=== PATIENT | female | born 1985 ===

== ENCOUNTER 2018-04-03 23:33 | Inpatient (IN) | payer MEDICAID ==
--- NOTE | 2018-04-04 02:22 | ED PDOC ---
HPI: Dental Pain/Injury Time Seen by Provider: 04/04/18 00:32 Chief Complaint (Nursing): Dental Pain Chief Complaint (Provider): Dental Pain History Per: Patient History/Exam Limitations: no limitations Onset/Duration Of Symptoms: Days (x2) Current Symptoms Are (Timing): Still Present Quality: "Pain" Additional History Per: Patient Additional Complaint(s): 32 y/o female with a HX of dental caries with abscess, presents to the ED with right facial swelling for the past 2 days. She describes pain and swelling to the right side of her face travelling upwards towards her eyes. Patient states one year ago the same symptoms occurred and was given antibiotics for treatment. She has not visited a dentist in some time. Otherwise, patient denies fever and any other symptoms. PMD: Ori Laird Past Medical History Reviewed: Historical Data, Nursing Documentation, Vital Signs Vital Signs: Last Vital Signs Temp 97.8 F 04/04/18 00:26 Pulse 105 H 04/04/18 00:26 Resp 16 04/04/18 00:26 BP 127/78 04/04/18 00:26 Pulse Ox 95 04/04/18 00:26 ROBINSON Report Viewed: Yes - Medical History PMH: No Chronic Diseases - Surgical History Surgical History: No Surg Hx - Family History Family History: States: Unknown Family Hx - Social History Current smoker - smoking cessation education provided: No Ex-Smoker (has not smoked in the last 12 months): No Alcohol: None Drugs: Denies - Home Medications Home Medications: Ambulatory Orders Medication Instructions Recorded Alprazolam [Xanax] 2 mg PO TID PRN 04/04/18 Gabapentin [Neurontin] 400 mg PO TID 04/04/18 RX: Amitriptyline HCl 100 mg PO DAILY 04/04/18 RX: Topiramate [Topamax] 100 mg PO DAILY 04/04/18 - Allergies Allergies/Adverse Reactions: Allergies Allergy/AdvReac Type Severity Reaction Status Date / Time No Known Allergies Allergy Verified 04/04/18 00:26 Review of Systems ROS Statement: Except As Marked, All Systems Reviewed And Found Negative Constitutional: Positive for: Other (right facial swelling and pain). Negative for: Fever Physical Exam - Reviewed Nursing Documentation Reviewed: Yes Vital Signs Reviewed: Yes - Physical Exam Appears: Positive for: Well, No Acute Distress Head Exam: Positive for: ATRAUMATIC, NORMAL INSPECTION, NORMOCEPHALIC Skin: Positive for: Normal Color, Warm, Dry Eye Exam: Positive for: EOMI, Normal appearance, PERRL ENT: Positive for: Normal ENT Inspection, Other (multiple dental caries to the upper right teeth; edema, tenderness to the right side of face) Neck: Positive for: Normal Cardiovascular/Chest: Positive for: Regular Rate, Rhythm. Negative for: Murmur Respiratory: Positive for: CNT, Normal Breath Sounds Gastrointestinal/Abdominal: Positive for: Normal Exam Back: Positive for: Normal Inspection Neurologic/Psych: Positive for: Alert, Oriented (x3) - Laboratory Results Result Diagrams: 04/04/18 02:30 04/04/18 02:30 - ECG O2 Sat by Pulse Oximetry: 95 (RA) Pulse Ox Interpretation: Normal Medical Decision Making Medical Decision Making: Time: 2:00 Initial Impression: 32 y/o female with facial swelling to the right side of her face. Labs and CT ordered. Initial Plan: Time: 00:59 -maxillofacial w contrast -CMP -LAct Acid Plasma Stat -ED urine -Ed Urine dipstick POC -CBC w differential -Todral 30 mg IV Stat -Blood culturestat -Iv Insertion -Urinalysis 04:[address] Findings: 8.9x7.5 mm well defined periapical/ peridental paralysis of the right temporal midline aspect of the mandible. Overlying perimandibular phlegmon formation. Surrounding right mandibular/right facial cellulitis. Mild chronic mucosal inflammatory changes of the maxillary sinuses and ethmoid air cells. Normal bilateral orbital contents. Normal bilateral medial and inferior orbital plunkett. Normal bilateral maxillary bones. Normal bilateral frontozygomatic arches. Normal bilateral zygomatic temporal arches. Normal nasal bones. Normal anterior nasal spine. There is no demonstrated fracture. Impression: 8.9 x 7.5 mm well defined periapical/ peridental lytic area of the right temporal midline aspect of the mandible. This can be secondary to prior intervention, cyst or infection/intraosseous abscess formation. Overlying perimandibular phlegmon formation. Surrounding right perimandibular/right facial cellulitis. No drainable abscess formation. Mild chronic mucosal inflammatory changes of the maxillary sinuses and ethmoid air cells. Time: 4:48 -Labs reviewed and revealed no clinically significant abnormalities -Patient will be admitted for right facial cellulitis and will be referred to Dr. Washington Scribe Attestation: Documented by Shania Martinez, acting as a scribe for Jeronimo Man. Provider Scribe Attestation: All medical record entries made by the Scribe were at my direction and personally dictated by me. I have reviewed the chart and agree that the record accurately reflects my personal performance of the history, physical exam, medical decision making, and the department course for this patient. I have also personally directed, reviewed, and agree with the discharge instructions and disposition. Disposition - Clinical Impression Clinical Impression: Facial cellulitis - Patient ED Disposition Is Patient to be Admitted: Yes - Disposition Disposition Time: 04:48 Condition: FAIR
[2018-04-04 02:43] LABS: BASO % 0.5 % (0.0-2.0); EOS # 0.2 K/uL (0.0-0.7); EOS % 2.2 % (0.0-4.0); HEMOGLOBIN 12.4 g/dL (12.0-16.0); LYMPH # 4.9 K/uL (1.0-4.3); LYMPH % 48.7 % (20.0-40.0); MEAN CELL VOLUME 88.5 fl (81.0-99.0); MEAN CORPUSCULAR HEMOGLOBIN 29.8 pg (27.0-31.0); MEAN CORPUSCULAR HGB CONC 33.7 g/dL (33.0-37.0); MEAN PLATELET VOLUME 7.7 fl (7.2-11.7); MONO # 0.7 K/uL (0.0-0.8); MONO % 6.9 % (0.0-10.0); NEUT # 4.2 K/uL (1.8-7.0); NEUT % 41.7 % (50.0-75.0); NRBC % 0.1 % (0.0-0.0); RBC 4.16 Mil/uL (3.80-5.20); RED CELL DISTRIBUTION WIDTH 13.8 % (11.5-14.5)
[2018-04-04 03:03] LABS: ALB/GLOB RATIO 1.2 (1.0-2.1); ALBUMIN 3.9 g/dL (3.5-5.0); ALT/SGPT 24 U/L (9-52); AST/SGOT 79 U/L (14-36); BLOOD UREA NITROGEN 13 mg/dl (7-17); CALCIUM 8.8 mg/dL (8.4-10.2); GFR NON-AFRICAN AMERICAN > 60
[2018-04-04] MEDS ORDERED: Iohexol 300 100 ML IJ ONE (03:33)
[2018-04-04] MEDS ORDERED: Sodium Chloride 0.9% 50 ML IV ONE (03:33)
[2018-04-04] MEDS ORDERED: Piperacillin/Tazobact 3.375 GM in Sodium Chloride 0.9% 100 ML IV STA (04:42)
[2018-04-04] MEDS ORDERED: Piperacillin/Tazobact 3.375 gm Inj IVPB ONE (05:13)
[2018-04-04] MEDS ORDERED: Lidocaine 5% Patch TD ONE (05:14)
[2018-04-04] MEDS: Lidocaine 5% Patch TD SCH (05:30)
--- NOTE | 2018-04-04 06:37 | CARD ---
APPROVED REPORT Date of service: 04/04/2018 EKG Measurement Heart [id number] <Conclusion> Normal sinus rhythm Normal ECG
--- NOTE | 2018-04-04 07:47 | RAD ---
Date of service: 04/04/2018 HISTORY: admit COMPARISON: No prior. FINDINGS: LUNGS: No active pulmonary disease. PLEURA: No significant pleural effusion identified, no pneumothorax apparent. CARDIOVASCULAR: No aortic atherosclerotic calcification present. Normal cardiac size. No pulmonary vascular congestion. OSSEOUS STRUCTURES: No significant abnormalities. VISUALIZED UPPER ABDOMEN: Bilateral renal collecting system contrast laden urine is suggested-compatible with prior contrast enhanced CT study. OTHER FINDINGS: None. IMPRESSION: No active disease. Other findings as above.
[2018-04-04] MEDS ORDERED: Piperacillin/Tazobact 3.375 GM in Sodium Chloride 0.9% 100 ML IVPB SCH (09:28)
--- NOTE | 2018-04-04 10:59 | CT ---
Date of service: 04/04/2018 PROCEDURE: CT MAXILLOFACIAL BONES WITHOUT CONTRAST HISTORY: right facial swelling COMPARISON: None available. TECHNIQUE: Contiguous axial CT images of the maxillofacial bones were obtained. Coronal and sagittal reformats were generated. Radiation dose: Total exam DLP = 759.58 mGy-cm. This CT exam was performed using one or more of the following dose reduction techniques: Automated exposure control, adjustment of the mA and/or kV according to patient size, and/or use of iterative reconstruction technique. FINDINGS: NASAL BONES: Unremarkable. ORBITS: Unremarkable. PARANASAL SINUSES/ MASTOIDS: Bilateral slightly lobulated mucosal thickening/inflammatory changes line each maxillary sinus.. Concomitant underlying small retention cyst also likely present in each maxillary sinus as well. MAXILLA: Unremarkable. MANDIBLE/ TEMPOROMANDIBULAR JOINTS: In the right paramedian an approximately 9 to 10 mm right periapical intraosseous cystic lesion is identified the outer right mandibular cortex here is extremely thin and integrity is likely incomplete here. The overlying right facial soft tissues are swollen compatible with a regional phlegmon here. No drainable abscess here seen. The right mandibular joint itself appears unremarkable SKULL BASE: Unremarkable. TEMPORAL BONES: Middle ears and mastoid grossly unremarkable. OTHER FINDINGS: Few likely hyperplastic appearing lymph nodes greater on the right side measures 16 mm in length their short axis of 11 mm another measures 15 cm in length with a short axis of 8 mm. IMPRESSION: Right paracentral dental/periapical intraosseous mandibular cystic/lytic appearing lesion with thin likely dehiscence of the outer cortex and overlying regional phlegmon suggested. No drainable abscess here. Consultation with a dentist/oral surgeon is recommended for follow-up. Other findings as above. Concordant results (preliminary interpretation) provided by [employer].
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
[2018-04-04] MEDS: Mag&Al/Simet/Diphen/Lido 237 ML KIT PO SCH ×2 (12:50→17:34)
[2018-04-04] MEDS ORDERED: Pneumococcal 23-Valent Vaccine IM ONE (13:09)
[2018-04-04] MEDS ORDERED: Influenza Vaccine (5 YR UP)/PF 60 MCG/0.5 ML SYR IM ONE (13:10)
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
--- NOTE | 2018-04-04 15:21 | CP.PCM.PCO ---
Assessment/Plan - Assessment/Plan Assessment (Free Text): Pt seen and examined by Dr. Chavis. Per Dr. Chavis's recommendation, pt needs FS taj. Recommends to transfer pt to [facility], where an oral surgeon is available. Contacted [facility] transfer center ([phone]), they will accept patient. Spoke with Hospitalist non destructive testing supervisor, they will accept pt under their service and consult oral surgery. Face sheet faxed, per Xiomara MENA, [facility] is in-network with pt's insurance and no prior authorization needed. Transfer center made aware of same, they will get a bed and pt can be transported once bed is available. Discussed with Dr. Washington who agrees with plan. Pt aware of pending transportation to [facility]
[2018-04-04] MEDS ORDERED: Oxycodone/Acetaminophen 5/325 mg Tab PO STA (16:32)
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
[2018-04-05] MEDS ORDERED: Lidocaine 5% Patch TD ONE
--- NOTE | 2018-04-05 10:00 | CP.PCM.PN ---
Subjective - Date & Time of Evaluation Date of Evaluation: 04/05/18 Time of Evaluation: 10:02 - Subjective Subjective: DECLINED TRANSFER TO [facility] FOR SURGICAL DRAINAGE OF DENTAL ABSCESS YESTERDAY FEELS BETTER TODAY FACIAL SWELLING/ERYTEMA AND PAIN IMPROVED WITH ANTIBIOTIC RX Objective - Vital Signs/Intake and Output Vital Signs (last 24 hours): Temp Pulse Resp BP Pulse Ox 98 F 81 20 110/73 98 04/05/18 08:07 04/05/18 08:07 04/05/18 08:07 04/05/18 08:07 04/05/18 08:07 - Medications Medications: Current Medications Alprazolam (Xanax) 2 mg PO TID PRN PRN Reason: Anxiety Amitriptyline HCl (Elavil) 100 mg PO DAILY [facility] Last Admin: 04/04/18 13:04 Dose: 100 mg Gabapentin (Neurontin) 400 mg PO TID [facility] Last Admin: 04/04/18 17:34 Dose: 400 mg Piperacillin Sod/Tazobactam (Sod 2.25 gm/ Sodium Chloride) 100 mls @ 100 mls/hr IVPB Q6 [facility]; Protocol Last Admin: 04/05/18 04:36 Dose: 100 mls/hr Vancomycin HCl 1 gm/ Sodium (Chloride) 250 mls @ 166.667 mls/hr IVPB Q12H [facility]; Protocol Last Admin: 04/05/18 02:18 Dose: 166.667 mls/hr Lidocaine (Lidoderm) 1 ea TD DAILY [facility] Last Admin: 04/04/18 05:30 Dose: 1 ea Nicotine (Nicoderm Cq) 1 patch TD DAILY [facility] Last Admin: 04/04/18 12:49 Dose: 1 patch Risperidone (Risperdal Tab) 4 mg PO DAILY [facility] Last Admin: 04/04/18 13:05 Dose: 4 mg Saliva Substitute (First Magic Mouthwash) 5 ml PO TID [facility] Last Admin: 04/04/18 17:34 Dose: 5 ml Sertraline HCl (Zoloft) 100 mg PO DAILY [facility] Last Admin: 04/04/18 13:03 Dose: 100 mg Topiramate (Topamax) 100 mg PO DAILY [facility] Last Admin: 04/04/18 13:05 Dose: 100 mg - Labs Labs: 04/04/18 02:30 04/04/18 02:30 - Constitutional Appears: No Acute Distress - Head Exam Head Exam: ATRAUMATIC, NORMAL INSPECTION, NORMOCEPHALIC - Eye Exam Eye Exam: EOMI, Normal appearance, PERRL Pupil Exam: NORMAL ACCOMODATION, PERRL - ENT Exam ENT Exam: Mucous Membranes Moist, Normal Exam Additional comments: FACIAEDEMA AND REDNESS IMPROVED - Neck Exam Neck Exam: Full ROM, Normal Inspection. absent: Lymphadenopathy - Respiratory Exam Respiratory Exam: Clear to Ausculation Bilateral, NORMAL BREATHING PATTERN - Cardiovascular Exam Cardiovascular Exam: REGULAR RHYTHM, +S1, +S2. absent: Murmur - GI/Abdominal Exam GI & Abdominal Exam: Soft, Normal Bowel Sounds. absent: Tenderness - Rectal Exam Rectal Exam: NORMAL INSPECTION - Extremities Exam Extremities Exam: Full ROM, Normal Capillary Refill, Normal Inspection. absent: Joint Swelling, Pedal Edema - Back Exam Back Exam: NORMAL INSPECTION - Neurological Exam Neurological Exam: Alert, Awake, CN II-XII Intact, Normal Gait, Oriented x3 - Psychiatric Exam Psychiatric exam: Normal Affect, Normal Mood - Skin Skin Exam: Dry, Intact, Normal Color, Warm Assessment and Plan - Assessment and Plan (Free Text) Assessment: DENTAL ABSCESS CELLULITIS OF FACE Plan: CONTINUE IV ANTIBIOTIC RX D/C IN AM ON ORAL ANTIBIOTICS PT TO ARRANGE HER OWN DENTAL FOLLOW UP
[2018-04-05] MEDS: Mag&Al/Simet/Diphen/Lido 237 ML KIT PO SCH ×4 (10:31→20:44)
[2018-04-05] MEDS: Lidocaine 5% Patch TD SCH (10:33)
--- NOTE | 2018-04-05 17:51 | CP.PCM.PN ---
Subjective - Date & Time of Evaluation Date of Evaluation: 04/05/18 Time of Evaluation: 08:00 - Subjective Subjective: refused transfer to [facility] less swelling and pain cont rx Objective - Vital Signs/Intake and Output Vital Signs (last 24 hours): Temp Pulse Resp BP Pulse Ox 98.1 F 81 20 97/59 L 96 04/05/18 15:40 04/05/18 15:40 04/05/18 15:40 04/05/18 15:40 04/05/18 15:40 - Medications Medications: Current Medications Alprazolam (Xanax) 2 mg PO TID PRN PRN Reason: Anxiety Last Admin: 04/05/18 10:53 Dose: 2 mg Amitriptyline HCl (Elavil) 100 mg PO DAILY [facility] Last Admin: 04/05/18 10:31 Dose: 100 mg Gabapentin (Neurontin) 400 mg PO TID [facility] Last Admin: 04/05/18 17:37 Dose: 400 mg Piperacillin Sod/Tazobactam (Sod 2.25 gm/ Sodium Chloride) 100 mls @ 100 mls/hr IVPB Q6 [facility]; Protocol Last Admin: 04/05/18 17:36 Dose: 100 mls/hr Vancomycin HCl 1 gm/ Sodium (Chloride) 250 mls @ 166.667 mls/hr IVPB Q12H [facility]; Protocol Last Admin: 04/05/18 14:41 Dose: 166.667 mls/hr Lidocaine (Lidoderm) 1 ea TD DAILY [facility] Last Admin: 04/05/18 10:33 Dose: 1 ea Nicotine (Nicoderm Cq) 1 patch TD DAILY [facility] Last Admin: 04/05/18 10:34 Dose: 1 patch Risperidone (Risperdal Tab) 4 mg PO DAILY [facility] Last Admin: 04/05/18 10:34 Dose: 4 mg Saliva Substitute (First Magic Mouthwash) 5 ml PO TID [facility] Last Admin: 04/05/18 17:37 Dose: 5 ml Sertraline HCl (Zoloft) 100 mg PO DAILY [facility] Last Admin: 04/05/18 10:35 Dose: 100 mg Topiramate (Topamax) 100 mg PO DAILY [facility] Last Admin: 04/05/18 10:35 Dose: 100 mg - Labs Labs: 04/04/18 02:30 04/04/18 02:30 - Constitutional Appears: Non-toxic, Chronically Ill - Head Exam Head Exam: NORMOCEPHALIC - Eye Exam Eye Exam: absent: Scleral icterus - ENT Exam ENT Exam: Mucous Membranes Dry - Neck Exam Neck Exam: absent: Thyromegaly - Respiratory Exam Respiratory Exam: Decreased Breath Sounds - Cardiovascular Exam Cardiovascular Exam: REGULAR RHYTHM - GI/Abdominal Exam GI & Abdominal Exam: Distended, Soft - Rectal Exam Rectal Exam: Deferred - Exam Exam: NORMAL INSPECTION - Extremities Exam Extremities Exam: absent: Pedal Edema - Back Exam Back Exam: absent: CVA tenderness (R), NORMAL INSPECTION - Neurological Exam Neurological Exam: Alert, Awake, Oriented x3 - Psychiatric Exam Psychiatric exam: Normal Mood - Skin Skin Exam: Dry Assessment and Plan (1) Periodontal abscess Status: Acute (2) Cellulitis and abscess of face Status: Acute - Assessment and Plan (Free Text) Assessment: cont IV then PO rx follow up with private dentist/ OMFS
[2018-04-06 00:14] VITALS: TEMP 98
[2018-04-06] MEDS: Mag&Al/Simet/Diphen/Lido 237 ML KIT PO SCH ×3 (00:24→13:13)
[2018-04-06 08:24] VITALS: BP 92/58; PULSE 67; RESP 20; O2SAT 97
[2018-04-06] MEDS: Lidocaine 5% Patch TD SCH (09:13)
--- NOTE | 2018-04-06 10:56 | CP.PCM.DIS ---
Provider - Provider Date of Admission: 04/04/18 04:48 Attending physician: Ken Washington MD Consults: 04/04/18 10:25 Infectious Disease Consult Routine Comment: Consulting Provider: Grover Chavis Consulting Physician: Grover Chavis Reason for Consult: CELLULITIS Time Spent in preparation of Discharge (in minutes): 35 Diagnosis - Discharge Diagnosis (1) Cellulitis and abscess of face Status: Acute (2) Facial cellulitis Status: Acute (3) Periodontal abscess Status: Acute Hospital Course - Lab Results Lab Results: Micro Results 04/04/18 02:45 Blood Blood Culture - Preliminary NO GROWTH AFTER 48 HOURS 04/04/18 02:30 Blood Blood Culture - Preliminary NO GROWTH AFTER 48 HOURS Most Recent Lab Values WBC 10.0 K/uL (4.8-10.8) 04/04/18 02:30 RBC 4.16 Mil/uL (3.80-5.20) 04/04/18 02:30 Hgb 12.4 g/dL (12.0-16.0) 04/04/18 02:30 Hct 36.8 % (34.0-47.0) 04/04/18 02:30 MCV 88.5 fl (81.0-99.0) 04/04/18 02:30 MCH 29.8 pg (27.0-31.0) 04/04/18 02:30 MCHC 33.7 g/dL (33.0-37.0) 04/04/18 02:30 RDW 13.8 % (11.5-14.5) 04/04/18 02:30 Plt Count 279 K/uL (130-400) 04/04/18 02:30 MPV 7.7 fl (7.2-11.7) 04/04/18 02:30 Neut % (Auto) 41.7 % (50.0-75.0) L 04/04/18 02:30 Lymph % (Auto) 48.7 % (20.0-40.0) H 04/04/18 02:30 [place] % (Auto) 6.9 % (0.0-10.0) 04/04/18 02:30 Eos % (Auto) 2.2 % (0.0-4.0) 04/04/18 02:30 Baso % (Auto) 0.5 % (0.0-2.0) 04/04/18 02:30 Neut # (Auto) 4.2 K/uL (1.8-7.0) 04/04/18 02:30 Lymph # (Auto) 4.9 K/uL (1.0-4.3) H 04/04/18 02:30 [place] # (Auto) 0.7 K/uL (0.0-0.8) 04/04/18 02:30 Eos # (Auto) 0.2 K/uL (0.0-0.7) 04/04/18 02:30 Baso # (Auto) 0.0 K/uL (0.0-0.2) 04/04/18 02:30 Sodium 138 mmol/l (132-148) 04/04/18 02:30 Potassium 4.8 MMOL/L (3.6-5.0) 04/04/18 02:30 Chloride 102 mmol/L (98-107) 04/04/18 02:30 Carbon Dioxide 28 mmol/L (22-30) 04/04/18 02:30 Anion Gap 13 (10-20) 04/04/18 02:30 BUN 13 mg/dl (7-17) 04/04/18 02:30 Creatinine 0.5 mg/dl (0.7-1.2) L 04/04/18 02:30 Est GFR ( Amer) > 60 04/04/18 02:30 Est GFR (Non-Af Amer) > 60 04/04/18 02:30 Random Glucose 89 mg/dL (65-105) 04/04/18 02:30 Lactic Acid 1.6 MMOL/L (0.7-2.1) 04/04/18 02:30 Calcium 8.8 mg/dL (8.4-10.2) 04/04/18 02:30 Total Bilirubin 0.7 mg/dl (0.2-1.3) 04/04/18 02:30 AST 79 U/L (14-36) H D 04/04/18 02:30 ALT 24 U/L (9-52) 04/04/18 02:30 Alkaline Phosphatase 52 U/L (38-126) 04/04/18 02:30 Total Protein 7.2 G/DL (6.3-8.2) 04/04/18 02:30 Albumin 3.9 g/dL (3.5-5.0) 04/04/18 02:30 Globulin 3.3 gm/dL (2.2-3.9) 04/04/18 02:30 Albumin/Globulin Ratio 1.2 (1.0-2.1) 04/04/18 02:30 - Hospital Course Hospital Course: FACXIAL CELLULITIS AND SWELLING OF JAW WITH PAIN IMPROVED PT REFUSED TRANSFER TO [facility] FOR ORAL SURGERY AND WILL FOLLOW UP WITH HER DENTISTON DISCHARGE Discharge Exam - Head Exam Head Exam: NORMOCEPHALIC - Eye Exam Eye Exam: EOMI, Normal appearance, PERRL Pupil Exam: NORMAL ACCOMODATION, PERRL - ENT Exam Additional comments: FACIAL CELLULITIS AND SWELLING OF JAW IMPROVED - GI/Abdominal Exam GI & Abdominal Exam: Normal Bowel Sounds - Rectal Exam Rectal Exam: NORMAL INSPECTION - Neurological Exam Neurological exam: Alert, CN II-XII Intact, Normal Gait, Oriented x3, Reflexes Normal - Psychiatric Exam Psychiatric exam: Normal Affect, Normal Mood - Skin Skin Exam: Dry, Intact, Normal Color, Warm Discharge Plan - Follow Up Plan Condition: FAIR Disposition: HOME/ ROUTINE Instructions: Tooth Abscess (DC), Cellulitis (Skin Infection), Adult (DC), Dental Pain (DC) Additional Instructions: transfer to [facility] for oral surgery services. Referrals: Grover Chavis MD [Staff Provider] - Ken Washington MD [Staff Provider] -
--- NOTE | 2018-04-06 14:07 | CP.PCM.PN ---
Subjective - Date & Time of Evaluation Date of Evaluation: 04/06/18 Time of Evaluation: 06:00 - Subjective Subjective: seen on rounds awaiting discharge c/o pain but less no headache or visual disturbance facial swelling less and no fever Objective - Vital Signs/Intake and Output Vital Signs (last 24 hours): Temp Pulse Resp BP Pulse Ox 98 F 67 20 92/58 L 97 04/06/18 08:23 04/06/18 08:23 04/06/18 08:23 04/06/18 08:23 04/06/18 08:23 - Medications Medications: Current Medications Alprazolam (Xanax) 2 mg PO TID PRN PRN Reason: Anxiety Last Admin: 04/06/18 10:53 Dose: 2 mg Amitriptyline HCl (Elavil) 100 mg PO DAILY [facility] Last Admin: 04/06/18 09:14 Dose: 100 mg Gabapentin (Neurontin) 400 mg PO TID [facility] Last Admin: 04/06/18 13:13 Dose: 400 mg Piperacillin Sod/Tazobactam (Sod 2.25 gm/ Sodium Chloride) 100 mls @ 100 mls/hr IVPB Q6 [facility]; Protocol Last Admin: 04/06/18 09:18 Dose: 100 mls/hr Vancomycin HCl 1 gm/ Sodium (Chloride) 250 mls @ 166.667 mls/hr IVPB Q12H [facility]; Protocol Last Admin: 04/06/18 01:30 Dose: 166.667 mls/hr Lidocaine (Lidoderm) 1 ea TD DAILY [facility] Last Admin: 04/06/18 09:13 Dose: 1 ea Nicotine (Nicoderm Cq) 1 patch TD DAILY [facility] Last Admin: 04/06/18 09:14 Dose: 1 patch Risperidone (Risperdal Tab) 4 mg PO DAILY [facility] Last Admin: 04/06/18 09:14 Dose: 4 mg Saliva Substitute (First Magic Mouthwash) 5 ml PO TID [facility] Last Admin: 04/06/18 13:13 Dose: 5 ml Sertraline HCl (Zoloft) 100 mg PO DAILY [facility] Last Admin: 04/06/18 09:14 Dose: 100 mg Topiramate (Topamax) 100 mg PO DAILY [facility] Last Admin: 04/06/18 09:14 Dose: 100 mg - Labs Labs: 04/04/18 02:30 04/04/18 02:30 - Constitutional Appears: Non-toxic, Chronically Ill - Head Exam Head Exam: NORMOCEPHALIC - Eye Exam Eye Exam: absent: Scleral icterus - ENT Exam ENT Exam: Mucous Membranes Dry - Neck Exam Neck Exam: absent: Lymphadenopathy - Respiratory Exam Respiratory Exam: Clear to Ausculation Bilateral - Cardiovascular Exam Cardiovascular Exam: REGULAR RHYTHM - GI/Abdominal Exam GI & Abdominal Exam: Distended, Soft - Rectal Exam Rectal Exam: Deferred - Exam Exam: NORMAL INSPECTION - Extremities Exam Extremities Exam: absent: Pedal Edema - Back Exam Back Exam: absent: CVA tenderness (L), CVA tenderness (R) - Neurological Exam Neurological Exam: Alert, Awake, Oriented x3 Assessment and Plan (1) Periodontal abscess Status: Acute (2) Cellulitis and abscess of face Status: Acute - Assessment and Plan (Free Text) Assessment: refused OMFS at [facility] will cont PO antibiotics and f/up with OMFS as out pt - advised of need for compliance
== END 2018-04-06 14:30 | disposition home or self-care (01) | DRG 277 ==
LOC: H.ER 23:33 → H.ERHOLD 04-04 04:48 → H.MEDSURG1 04-04 06:07
PROVIDERS: ADMIT Internal Medicine Pulmonary Disease; ATTEND Internal Medicine Pulmonary Disease
PROC: 3E02340 Introduction of Influenza Vaccine into Muscle, Percutaneous Approach (ICD-10-PCS; principal; 2018-04-04)
PROC: 3E0234Z Introduction of Serum, Toxoid and Vaccine into Muscle, Percutaneous Approach (ICD-10-PCS; 2018-04-04)
DX: L03.211 Cellulitis of face (principal); F20.9 Schizophrenia, unspecified; L02.01 Cutaneous abscess of face; K04.7 Periapical abscess without sinus; G89.4 Chronic pain syndrome; F31.9 Bipolar disorder, unspecified; F43.10 Post-traumatic stress disorder, unspecified; Z23 Encounter for immunization; F17.210 Nicotine dependence, cigarettes, uncomplicated

== ENCOUNTER 2018-06-28 10:16 | Emergency (ER) | payer MEDICAID ==
[2018-06-28 10:21] VITALS: BP 113/79; PULSE 99; RESP 18; TEMP 99.5
[2018-06-28 10:32] VITALS: O2SAT 98
[2018-06-28] MEDS ORDERED: Sodium Chloride 0.9% 1,000 ML IV STA (10:44)
[2018-06-28 11:01] LABS: BASO # 0.1 K/uL (0.0-0.2); BASO % 0.8 % (0.0-2.0); EOS # 0.6 K/uL (0.0-0.7); EOS % 6.7 % (0.0-4.0); HEMOGLOBIN 13.1 g/dL (12.0-16.0); LYMPH % 60.1 % (20.0-40.0); MEAN CELL VOLUME 89.8 fl (81.0-99.0); MEAN CORPUSCULAR HEMOGLOBIN 29.3 pg (27.0-31.0); MEAN CORPUSCULAR HGB CONC 32.6 g/dL (33.0-37.0); MEAN PLATELET VOLUME 7.5 fl (7.2-11.7); MONO # 0.5 K/uL (0.0-0.8); MONO % 5.8 % (0.0-10.0); NEUT # 2.2 K/uL (1.8-7.0); NEUT % 26.6 % (50.0-75.0); NRBC % 0.1 % (0.0-0.0); RBC 4.46 Mil/uL (3.80-5.20); RED CELL DISTRIBUTION WIDTH 14.2 % (11.5-14.5); WHITE BLOOD COUNT 8.3 K/uL (4.8-10.8)
[2018-06-28] MEDS ORDERED: Naloxone 0.4 mg/ml Inj (Adult) IVP STA (11:31)
[2018-06-28] MEDS ORDERED: Naloxone 0.4 mg/ml Inj (Adult) ONE (11:33)
--- NOTE | 2018-06-28 12:29 | ED PDOC ---
HPI: Psych/Substance Abuse Time Seen by Provider: 06/28/18 10:26 Chief Complaint (Nursing): Substance Abuse Chief Complaint (Provider): substance abuse History Per: Patient History/Exam Limitations: no limitations Onset/Duration Of Symptoms: Hrs Current Symptoms Are (Timing): Still Present Additional Complaint(s): Larisa Menezes is a 32 year old female, with no significant past medical history, who was brought to the emergency department by EMS for evaluation of substance abuse onset prior to arrival. Patient is only arousable to verbal stimuli. Unable to obtain full history from patient due to clinical condition. PMD: Unknown Past Medical History Reviewed: Historical Data, Nursing Documentation, Vital Signs Vital Signs: Last Vital Signs Temp 99.5 F 06/28/18 10:20 Pulse 99 H 06/28/18 10:20 Resp 18 06/28/18 10:20 BP 113/79 06/28/18 10:20 Pulse Ox 98 06/28/18 10:26 - Medical History PMH: Asthma, Bipolar Disorder, Depression Denies: Chronic Kidney Disease - Surgical History Surgical History: No Surg Hx - Family History Family History: States: Unknown Family Hx - Home Medications Home Medications: Ambulatory Orders Medication Instructions Recorded Alprazolam [Xanax] 2 mg PO TID PRN 04/04/18 Amitriptyline HCl 100 mg PO DAILY 04/04/18 Gabapentin [Neurontin] 400 mg PO TID 04/04/18 Topiramate [Topamax] 100 mg PO DAILY 04/04/18 Amoxicillin/Clavulanate [Augmentin 1 tab PO Q8 #30 tab 04/06/18 875 MG-125 MG] oxyCODONE/Acetaminophen [Percocet 1 ea PO Q8 #15 tab 04/06/18 5/325 mg Tab] - Allergies Allergies/Adverse Reactions: Allergies Allergy/AdvReac Type Severity Reaction Status Date / Time No Known Allergies Allergy Verified 06/28/18 21:26 Review of Systems Review Of Systems: ROS cannot be obtained secondary to pt's inabilty to answer questions. Physical Exam - Reviewed Nursing Documentation Reviewed: Yes Vital Signs Reviewed: Yes - Physical Exam Appears: Positive for: No Acute Distress Head Exam: Positive for: ATRAUMATIC, NORMAL INSPECTION, NORMOCEPHALIC Skin: Positive for: Normal Color, Warm, Dry Eye Exam: Positive for: Normal appearance, EOMI. Negative for: PERRL (pinpoint pupils) Neck: Positive for: Normal, Painless ROM Cardiovascular/Chest: Positive for: Regular Rate, Rhythm. Negative for: Murmur Respiratory: Positive for: Normal Breath Sounds. Negative for: Respiratory Distress Gastrointestinal/Abdominal: Positive for: Normal Exam, Soft. Negative for: Tenderness Back: Positive for: Normal Inspection. Negative for: L CVA Tenderness, R CVA Tenderness, Vertebral Tenderness Extremity: Positive for: Normal ROM (upper and lower extremities). Negative for: Deformity Neurological/Psych: Positive for: Awake, Alert (arousable to verbal stimuli), No rmal Tone - Laboratory Results Result Diagrams: 06/28/18 10:40 Lab Results: Beta HCG, Quant < 2.39 mIU/mL 06/28/18 10:40 - ECG O2 Sat by Pulse Oximetry: 98 (RA) Pulse Ox Interpretation: Normal - Critical Care Total Time (In Min): 30 Medical Decision Making Medical Decision Making: Time: 10:26 Initial Impression: Substance abuse Initial Plan: --Alcohol serum --Beta-HCG --CMP --Drug screen, urine --CBC w/ differential --NaCl 1,000 ml IV 125 mls --Narcan 0.4mg --Urinalysis --Reevaluation 11:30 -Patient refused IV fluids, she was notified that blood pressure was low. Patient also refused Narcan administration. 12:00 -Patient states she has to go get her housing situated. She is AOEx3, steady gait and wants to sign out AMA. This patient is choosing to leave against medical advice. The EP has personally explained to the pt that choosing to do so may result in permanent bodily harm or . The EP discussed at great length that without further evaluation and monitoring there may be unforeseen circumstances and/or deterioration causing permanent bodily harm or as a result of their choice. The pt verbalized these risks back to the physician in laymans terms. The pt is alert, oriented, and shows the mental capacity to make clear decisions regarding the pts health care at this time. The pt continues to wish to leave against medical advice. In light of the pts decision to leave AMA, follow-up has been arranged and the pt is aware of the importance of following up as instructed. The pt has been advised that they should return to the ED immediately if they change their mind at any time, or if thier condition begins to change or worsen in any way. Scribe Attestation: Documented by Aryan Ocampo, acting as a scribe Avni Fuller MD Provider Scribe Attestation: All medical record entries made by the Scribe were at my direction and personally dictated by me. I have reviewed the chart and agree that the record accurately reflects my personal performance of the history, physical exam, medical decision making, and the department course for this patient. I have also personally directed, reviewed, and agree with the discharge instructions and disposition. Disposition - Clinical Impression Clinical Impression: Drug abuse - Disposition Disposition: Against Medical Advice Disposition Time: 12:00 Condition: UNKNOWN Forms: [employer] ([place])
== END 2018-06-28 13:00 | disposition left against medical advice (07) ==
LOC: H.ER 10:16
DX: F19.10 Other psychoactive substance abuse, uncomplicated (principal); F31.9 Bipolar disorder, unspecified
CPT/HCPCS: 84702; 85025; 96360; 99285; J7030